=== PATIENT | female | born 1950 | race Caucasian/White ===

== ENCOUNTER → 2017-09-06 | Outpatient (CLI) | payer OTHER ==
[~2017-09-06] MED LIST: ACAI PO; ACAI500 MG PO; ALPHA-LIPOIC ACID PO; ASCO500 PO; ASPI81EC PO; Alpha-Lipoic Ac50 MG PO; Aspirin EC81 MG; B COMPLEX PO; B Complex #11 EACH PO; CALCIUM CITRAT1 EAC4 PO; CALCIUM CITRATE PO; CVS LUTEIN 401 EACH PO; DHEA 50 MG PO; DHEA PO; ESCI10 PO; ESCI5 PO; ESTRIOL/TEST; FERR325 PO; FISH1000 PO; FOLIC ACID PO; Folic Acid0.8 MG PO; GLUC500 PO; GLUCOSAMINE PO; IRON PO; LUTEIN/ZEAXANTHIN PO; MAGGLU250 PO; NIACIN 500 MG PO; NIACIN PO; SIMV10 PO; UBID10 PO; VIT C PO; VIT D3 PO; VITAMIN D31000 UNIT PO; ZINC PO; ZINC220 PO
== END | disposition home or self-care (01) ==
LOC: PLD 09:59 → LAB SHORT 09:59
DX: D48.5 Neoplasm of uncertain behavior of skin (principal)
CPT/HCPCS: 88305

== ENCOUNTER → 2021-01-29 | Outpatient (CLI) | payer OTHER ==
[~2021-01-29] MED LIST changes: +SERT50
== END | disposition home or self-care (01) ==
LOC: LAB 13:54 → LAB SHORT 13:54
DX: D22.71 Melanocytic nevi of right lower limb, including hip (principal)
CPT/HCPCS: 88305

== ENCOUNTER 2024-05-01 09:43 | Day surgery (SDC) | payer OTHER ==
[~2024-05-01 09:43] MED LIST changes: -IRON FOLATE PL1 EACH PO; -LOSA25 PO; -MAGNESIUM250 MG PO; -OMEGA-3 FISH O1 EA13 PO; -VITAMIN D350 MC3 PO
[2024-05-04] MEDS ORDERED: VITAMIN D350 MC3 PO (10:32)
[2024-05-04] MEDS ORDERED: UBID10 PO (10:32)
[2024-05-04] MEDS ORDERED: IRON FOLATE PL1 EACH PO (10:33)
[2024-05-04] MEDS ORDERED: MAGNESIUM250 MG PO (10:35)
[2024-05-04] MEDS ORDERED: LOSA25 PO (10:36)
[2024-05-04] MEDS ORDERED: OMEGA-3 FISH O1 EA13 PO (10:38)
== END 2024-05-21 02:17 | disposition home or self-care (01) ==
LOC: MOI US 09:43
DX: C50.412 Malignant neoplasm of upper-outer quadrant of left female breast (principal)
CPT/HCPCS: 19285; 77065; A4648

== ENCOUNTER → 2024-05-01 | Outpatient (CLI) | payer OTHER ==
[~2024-05-01] MED LIST changes: -FERR325 PO; +FERSU300 PO; +FISH OIL 1,2001 EAC7 PO; -FISH1000 PO; +FOLI1 PO; +IRON FOLATE PL1 EACH PO; +IVERMECTIN3 MG PO; +L-Glutamine500 MG PO; +LOSA25 PO; +MAGNESIUM250 MG PO; +NAC600 MG PO; +OMEGA-3 FISH O1 EA13 PO; +PHOSPHATIDYLSERINE PO; -SERT50; +SERT50 PO; -VITAMIN D31000 UNIT PO; +VITAMIN D350 MC3 PO; +Vitamin D1000 UNI1 PO; +Vitamin K100 MCG PO
== END ==
LOC: LAB SHORT 13:33 → LAB 13:33
DX: B37.2 Candidiasis of skin and nail (principal)
CPT/HCPCS: 87070; 87205

== ENCOUNTER 2024-05-11 10:05 | Day surgery (SDC) | payer OTHER ==
[2024-05-11] VITALS (7 sets, daily range): BP systolic 136–161; BP diastolic 69–81
[~2024-05-11] VITALS: Ht 167.6 cm; Wt 92.8 kg
[~2024-05-11 10:05] MED LIST changes: +IRON FOLATE PL1 EACH PO; +LOSA25 PO; +MAGNESIUM250 MG PO; +OMEGA-3 FISH O1 EA13 PO; +VITAMIN D350 MC3 PO
[2024-05-11] MEDS ORDERED: Lactated Ringer's 1,000 ML IV SCH (10:10)
[2024-05-11] MEDS ORDERED: CeFAZolin Sodium 2,000 MG in NS 100 ML IV SCH (10:10)
--- NOTE | 2024-05-11 10:44 | NUR ---
Ambulatory in Day Surgery History, Chart, Medications and Allergies reviewed before start of procedure.Lungs clear T/O to Auscultation. Patient confirms NPO status and agrees with scheduled surgery. Patient reports completing Chlorhexadine shower X2 prior to admission to hospital.Surgical site prepped with 2% Chlorhexidine cloth wipe. Patient States Post-Procedure ride home has been arranged.
[2024-05-11] MEDS ORDERED: FentaNYL Citrate 50 MCG/ML 2 ML Injection ONE ×2 (10:48→12:29)
[2024-05-11] MEDS ORDERED: propofoL 60 ML IV ONE (10:48)
[2024-05-11] MEDS ORDERED: CeFAZolin Sodium 2,000 MG VIAL ONE (10:57)
[2024-05-11] MEDS ORDERED: Ondansetron HCl 2 MG / ML 2ML Vial ONE (11:15)
[2024-05-11] MEDS ORDERED: Dexamethasone Sod Phos 10 MG/ML 1ML VIAL ONE (11:15)
[2024-05-11] MEDS ORDERED: Bupivacaine 0.5% HCl 5 MG/ML 30MLVIAL ONE (11:37)
[2024-05-11] MEDS ORDERED: ePHEDrine Sulfate 50 MG/ML 1ML Injection ONE (12:18)
[2024-05-11] MEDS ORDERED: HYDROcodone 5-APAP 325 TAB PO PRN (13:15)
--- NOTE | 2024-05-11 14:32 | NUR ---
Patient up to Ambulate independently. Gait steady. Discharge instructions reviewed with patient. Patient verbalizes understanding. Copy given to patient to take home, [facility]. Patient States Post-Procedure ride home has been arranged. Discharged via wheelchair to private car for ride home. PT REPORTS READY TO GO HOME. DRESSING C/D/I. BREAST BINDER ON. PT REPORTS HAVING PAIN MED AT HOME. PT DECLINES PAIN MEDICATION.
--- NOTE | 2024-05-11 14:35 | NUR ---
"Spiritual Care | Family support While Pt. is in recovery, met with spouse. Facilitated a life history and listened with interest and empathy. Spouse verbalized gratitude for the spiritual care visit. Spouse verbalized gratitude for the visit when the surg. staff brought him back into the recovery room."
== END 2024-05-11 14:32 | disposition home or self-care (01) ==
LOC: ORSCMMR 10:05
PROVIDERS: Surgery
PROC: 0HBU0ZZ Excision of Left Breast, Open Approach (ICD-10-PCS; principal; 2024-05-11 11:30)
DX: C50.412 Malignant neoplasm of upper-outer quadrant of left female breast (principal); Z17.1 Estrogen receptor negative status [ER-]; I10 Essential (primary) hypertension; E78.5 Hyperlipidemia, unspecified; E78.00 Pure hypercholesterolemia, unspecified; F41.9 Anxiety disorder, unspecified; F32.A Depression, unspecified; G47.33 Obstructive sleep apnea (adult) (pediatric); E66.9 Obesity, unspecified; Z68.33 Body mass index [BMI] 33.0-33.9, adult; Z79.899 Other long term (current) drug therapy
CPT/HCPCS: 88307; J0690; J1100; J2405; J2704; J3010; J7120

== ENCOUNTER → 2024-08-02 | Outpatient (CLI) | payer OTHER ==
[2024-08-10 10:28] LABS: HPV HIGH RISK BY TMA Not Detected; HPV SOURCE Cervical
== END | disposition home or self-care (01) ==
LOC: LAB SHORT 15:17 → LAB 15:17
PROVIDERS: Obstetrics & Gynecology
DX: Z01.419 Encounter for gynecological examination (general) (routine) without abnormal findings (principal)
CPT/HCPCS: 87624; G0123